=== PATIENT | male | born 2000 | race Hispanic/Latino ===

== ENCOUNTER 2022-12-16 06:01 | Emergency (ER) | payer SELFPAY ==
[2022-12-16 06:40] LABS: Absolute Lymphocytes (CBC) 1.8 K/uL (0.7-4.9); Hematocrit 49.4 % (39.6-49.0); Lymphocytes % 10.4 % (15.3-44.8); MCV 84.7 fL (80-100); MPV 9.1 fL (7.6-11.3); RBC Red Blood Cell Count 5.83 M/uL (4.33-5.43)
[2022-12-16 06:49] LABS: Specific Gravity 1.026 (1.005-1.030); Urine Bacteria <20 /HPF (<20); Urine Bilirubin NEGATIVE (Negative); Urine Blood 3+ (OVER) (Negative); Urine Clarity Extremely Turbid (Clear); Urine Color Light-Orange (Yellow); Urine Glucose NEGATIVE (Negative); Urine Mucus 4+ /HPF (None Seen); Urine Protein 1+ (Negative); Urine RBC >50 /HPF (None Seen); Urine Urobilinogen Normal (Normal); Urine pH 5.5 (5.0-7.0)
[2022-12-16] MEDS ORDERED: NA CHLORIDE 0.9% 1,000 ML ONE (06:54)
[2022-12-16] MEDS ORDERED: ONDANSETRON 4 MG/2 ML VIAL ONE (06:54)
[2022-12-16] MEDS ORDERED: MORPHINE 4 MG/ML SYR ONE (06:54)
[2022-12-16 06:58] LABS: Albumin 4.5 g/dL (3.4-5.0); Bilirubin Total 0.5 mg/dL (0.2-1.0); Potassium 3.4 mEq/L (3.5-5.1); Protein, Total 8.5 g/dL (6.4-8.2)
--- NOTE | 2022-12-16 07:32 | RAD REPORT ---
EXAM DESCRIPTION: CTAbdomen Pelvis W Contrast - 12/16/2022 7:20 am CLINICAL HISTORY: ABD PAIN COMPARISON: No comparisons TECHNIQUE: CT of the abdomen and pelvis was performed. All CT scans are performed using dose optimization technique as appropriate and may include automated exposure control or mA/KV adjustment according to patient size. FINDINGS: Lower chest: No acute abnormality. Mild circumferential thickened distal esophagus. Liver: No acute abnormality or suspicious lesions. Biliary: No biliary ductal dilatation. Stomach: No significant focal abnormality. Duodenum: No significant focal abnormality. Pancreas: No significant abnormality. Spleen: No significant abnormality. Adrenal: No suspicious lesions. Kidney/ureter: Mild right-sided hydronephrosis secondary to a 2 mm stone in the right proximal ureter . No renal calculi identified. Retroperitoneum: No retroperitoneal adenopathy. Vascular: No aneurysm. Bowel: No significant focal abnormality. Normal appendix . Peritoneum: No ascites or free air. Bladder: Grossly unremarkable. Reproductive: No adnexal masses. Bones: No acute fracture. Other: n/a IMPRESSION: Mild right-sided hydronephrosis secondary to a 2 mm stone in the right proximal ureter.
--- NOTE | 2022-12-16 08:13 | ER ---
Nurse's Notes [facility] Name: Shiraz Cantor Age: 22 yrs Sex: Male : 2000 Arrival Date: 12/16/2022 Time: 06:01 Bed 5 Private MD: Diagnosis: Kidney Stone/ Calculus in urethra Presentation: 12/16 06:11 Chief complaint: Patient states: Yesterday i started to notice some abdominal pain on kd3 the right lower side. I ate dinner and i vomited and felt better so i went to bed. This morning i wok up around 2 am with the same pain in my right lower side. Coronavirus screen: Vaccine status:. Ebola Screen: No symptoms or risks identified at this time. Initial Sepsis Screen: Does the patient meet any 2 criteria? No. Patient's initial sepsis screen is negative. Does the patient have a suspected source of infection? No. Patient's initial sepsis screen is negative. Risk Assessment: Do you want to hurt yourself or someone else? Patient reports no desire to harm self or others. Onset of symptoms was December 16, 2022. 06:11 Method Of Arrival: Ambulatory kd3 06:11 Acuity: EPIFANIO 3 kd3 Triage Assessment: 06:13 General: Appears uncomfortable, Behavior is calm, cooperative. Pain: Complains of pain kd3 in right lower quadrant. Neuro: Level of Consciousness is awake, alert, obeys commands, Oriented to person, place, time, situation. Cardiovascular: Patient's skin is warm and dry. Respiratory: Airway is patent Trachea midline Respiratory effort is even, unlabored, Respiratory pattern is regular, symmetrical. GI: Abdomen is non-distended, Reports lower abdominal pain, nausea, vomiting. Historical: - Allergies: 06:13 No Known Allergies; kd3 - Home Meds: 06:13 None [Active]; kd3 - PMHx: 06:13 None; kd3 - Immunization history:: Adult Immunizations. - Social history:: Smoking status: Patient reports the use of cigarette tobacco products. - Family history:: not pertinent. - Hospitalizations: : No recent hospitalization is reported. Screenin:15 [facility] ED Fall Risk Assessment (Adult) History of falling in the last 3 months, kd3 including since admission No falls in past 3 months (0 pts) Confusion or Disorientation No (0 pts) Intoxicated or Sedated No (0 pts) Impaired Gait No (0 pts) Mobility Assist Device Used No (0 pt) Altered Elimination No (0 pt) Score/Fall Risk Level 0 - 2 = Low Risk Maintained a safe environment. Abuse screen: Denies threats or abuse. Denies injuries from another. Nutritional screening: No deficits noted. Tuberculosis screening: No symptoms or risk factors identified. Assessment: 06:15 GI: Bowel sounds present X 4 quads. Abd is soft X 4 quads Abdomen is tender to kd3 palpation in right lower quadrant. 06:46 General: Appears uncomfortable, Behavior is calm, cooperative. Pain: Complains of pain kd3 in right lower quadrant. Neuro: Level of Consciousness is awake, alert, obeys commands, Oriented to person, place, time, situation. Cardiovascular: Patient's skin is warm and dry. Respiratory: Airway is patent Trachea midline Respiratory effort is even, unlabored, Respiratory pattern is regular, symmetrical. : Urine is cloudy, dark tea colored urine. 08:27 Reassessment: Patient appears in no apparent distress at this time. Patient and/or kr3 family updated on plan of care and expected duration. Pain level reassessed. Patient is alert, oriented x 3, equal unlabored respirations, skin warm/dry/pink. Vital Signs: 06:11 Pulse 110; Resp 19; Pulse Ox 96% on R/A; Weight 68.04 kg; Height 5 ft. 2 in. ; kd3 06:11 Temp 98(O); kd3 06:11 BP 165 / 94; kd3 06:54 BP 178 / 96; Pulse 107; Resp 19; Pulse Ox 96% on R/A; kd3 07:11 BP 190 / 114; Pulse 109; Resp 18; Pulse Ox 97% on 2 lpm NC; ld1 08:27 BP 159 / 97; Pulse 104; Resp 18; Pulse Ox 98% on 1 lpm NC; kr3 06:11 Body Mass Index 27.44 (68.04 kg, 157.48 cm) kd3 ED Course: 06:04 Patient arrived in ED. [id number] 06:07 Kirk Anderson MD is Attending Physician. rn 06:11 Aydee Augustine RN is Primary Nurse. kd3 06:13 Triage completed. kd3 06:13 Arm band placed on right wrist. kd3 06:15 Patient has correct armband on for positive identification. kd3 06:46 CMP Sent. kd3 06:46 Lipase Sent. kd3 06:46 Urinalysis w/ reflexes Sent. kd3 06:46 Lactate w/ 2H reflex if indic. Sent. kd3 06:46 Blood Culture Adult (2) Sent. kd3 07:06 Primary Nurse role handed off by Aydee Augustine RN eb 07:06 Attending Physician role handed off by Kirk Anderson MD bs3 07:06 Govind Porter MD is Attending Physician. bs3 07:22 CT Abd/Pelvis - IV Contrast Only In Process Unspecified. EDMS 07:36 Sheila Beth RN is Primary Nurse. kr3 08:12 Keyshawn Navarrete MD is Referral Physician. bs3 08:28 No provider procedures requiring assistance completed. IV discontinued, intact, kr3 bleeding controlled, No redness/swelling at site. Pressure dressing applied. Administered Medications: 06:45 Drug: NS 0.9% IV 1000 ml Route: IV; Rate: 1 bolus; Site: right antecubital; ha1 08:28 Follow up: IV Status: Completed infusion; IV Intake: 1000ml kr3 06:46 Drug: Ondansetron IVP 4 mg Route: IVP; Site: right antecubital; ha1 08:29 Follow up: Response: No adverse reaction kr3 06:49 Drug: morphine IVP or IV 4 mg Route: IVP; Infused Over: 4 mins; Site: right antecubital;ha1 08:29 Follow up: Response: No adverse reaction; RASS: Alert and Calm (0) kr3 Medication: 06:15 VIS not applicable for this client. kd3 Intake: 08:28 IV: 1000ml; Total: 1000ml. kr3 Outcome: 08:12 Discharge ordered by . bs3 08:28 Discharged to home ambulatory. kr3 08:28 Condition: stable 08:28 Discharge instructions given to patient, Instructed on discharge instructions, follow up and referral plans. medication usage, Demonstrated understanding of instructions, follow-up care, medications, Prescriptions given X 2. 08:28 Patient left the ED. kr3 Signatures: Dispatcher [employer] EDMS Kirk Anderson MD MD rn Botello, Elizabeth eb Sims, Lauren, RN RN ld1 Sangeetha Gloriaj6 Aydee Augustine, RN RN kd3 Tanya Rodriguez, RN RN ha1 Sheila Beth, RN RN kr3 Govind Porter MD MD bs3
--- NOTE | 2022-12-16 08:13 | EDPHYS ---
Physician Documentation [facility] Name: Shiraz Cantor Age: 22 yrs Sex: Male : 2000 Arrival Date: 12/16/2022 Time: 06:01 Bed 5 Private MD: ED Physician Govind Porter HPI: 12/16 06:22 This 22 yrs old Male presents to ER via Ambulatory with complaints of rn Abdominal Pain. 06:22 The patient presents with abdominal pain right lower quadrant. Onset: The rn symptoms/episode began/occurred yesterday. The symptoms do not radiate. Associated signs and symptoms: Pertinent positives: nausea and vomiting, Pertinent negatives: blood in stools, chest pain, constipation, diarrhea, fever, hematuria, shortness of breath, testicular pain. The symptoms are described as sharp, stabbing. Modifying factors: The symptoms are alleviated by nothing, the symptoms are aggravated by pressure. Severity of pain: At its worst the pain was moderate in the emergency department the pain is unchanged. The patient has not experienced similar symptoms in the past. The patient has not recently seen a physician. Historical: - Allergies: 06:13 No Known Allergies; kd3 - Home Meds: 06:13 None [Active]; kd3 - PMHx: 06:13 None; kd3 - Immunization history:: Adult Immunizations. - Social history:: Smoking status: Patient reports the use of cigarette tobacco products. - Family history:: not pertinent. - Hospitalizations: : No recent hospitalization is reported. ROS: 06:22 Constitutional: Negative for fever, chills, and weight loss, Cardiovascular: Negative rn for chest pain, palpitations, and edema, Respiratory: Negative for shortness of breath, cough, wheezing, and pleuritic chest pain, Abdomen/GI: + abd pain with nausea/vomiting Back: Negative for injury and pain, MS/Extremity: Negative for injury and deformity, Neuro: Negative for headache, weakness, numbness, tingling, and seizure. Exam: 06:22 Constitutional: This is a well developed, well nourished patient who is awake, alert, rn and in no acute distress. Cardiovascular: Tachycardic, regular. No pulse deficits. Respiratory: No increased work of breathing, no retractions or nasal flaring. Abdomen/GI: soft, + RLQ tenderness, no rebound Skin: Warm, dry MS/ Extremity: Pulses equal, no cyanosis. Neuro: Awake and alert, GCS 15 Vital Signs: 06:11 Pulse 110; Resp 19; Pulse Ox 96% on R/A; Weight 68.04 kg; Height 5 ft. 2 in. ; kd3 06:11 Temp 98(O); kd3 06:11 BP 165 / 94; kd3 06:54 BP 178 / 96; Pulse 107; Resp 19; Pulse Ox 96% on R/A; kd3 07:11 BP 190 / 114; Pulse 109; Resp 18; Pulse Ox 97% on 2 lpm NC; ld1 08:27 BP 159 / 97; Pulse 104; Resp 18; Pulse Ox 98% on 1 lpm NC; kr3 06:11 Body Mass Index 27.44 (68.04 kg, 157.48 cm) kd3 MDM: 06:07 Patient medically screened. rn 07:33 Data reviewed: vital signs, nurses notes. ED course: ct consistent with 2mm stone. pt bs3 very hypertensive, advised outpatietn f/u given htn, slightly low gfr for age. . 08:11 ED course: Patient strongly advised to follow-up regarding his elevated blood pressure bs3 return precautions for fevers chills intractable pain or any other concerning symptoms. 12/16 06:20 Order name: CBC with Diff; Complete Time: 07:06 rn 12/16 06:20 Order name: CMP; Complete Time: 07:06 rn 12/16 06:20 Order name: Lipase; Complete Time: 07:06 rn 12/16 06:20 Order name: Urinalysis w/ reflexes; Complete Time: 07:06 rn 12/16 07:07 Interpretation: Abnormal. bs3 12/16 06:20 Order name: Blood Culture Adult (2) rn 12/16 06:20 Order name: Lactate w/ 2H reflex if indic.; Complete Time: 07:06 rn 12/16 06:54 Order name: Urine Culture EDNC 12/16 07:07 Order name: CK; Complete Time: 07:33 bs3 12/16 06:20 Order name: CT Abd/Pelvis - IV Contrast Only; Complete Time: 07:33 rn 12/16 06:20 Order name: IV Saline Lock; Complete Time: 06:46 rn 12/16 06:20 Order name: Labs collected and sent; Complete Time: 06:46 rn Administered Medications: 06:45 Drug: NS 0.9% IV 1000 ml Route: IV; Rate: 1 bolus; Site: right antecubital; ha1 08:28 Follow up: IV Status: Completed infusion; IV Intake: 1000ml kr3 06:46 Drug: Ondansetron IVP 4 mg Route: IVP; Site: right antecubital; ha1 08:29 Follow up: Response: No adverse reaction kr3 06:49 Drug: morphine IVP or IV 4 mg Route: IVP; Infused Over: 4 mins; Site: right antecubital;ha1 08:29 Follow up: Response: No adverse reaction; RASS: Alert and Calm (0) kr3 Disposition Summary: 12/16/22 08:12 Discharge Ordered Location: Home bs3 Problem: new bs3 Symptoms: have improved bs3 Condition: Stable bs3 Diagnosis - Kidney Stone/ Calculus in urethra bs3 Followup: bs3 - With: Private Physician - When: 5 - 6 days - Reason: Re-evaluation by your physician Followup: bs3 - With: Keyshawn Navarrete MD - When: 48 Hours - Reason: If symptoms return Discharge Instructions: - Discharge Summary Sheet bs3 - Kidney Stones, [id number] bs3 - Hypertension, Adult, [id number] bs3 Forms: - Medication Reconciliation Form bs3 - Thank You Letter bs3 - Antibiotic Education bs3 - Prescription Opioid Use bs3 Prescriptions: - tamsulosin 0.4 mg Oral capsule - take 1 capsule by ORAL route every 24 hours; 14 capsule; Refills: 0, Product bs3 Selection Permitted - ondansetron 8 mg Oral tablet,disintegrating - take 1 tablet by ORAL route every 8 hours; 12 tablet; Refills: 0, Product bs3 Selection Permitted Signatures: Dispatcher [employer] Kirk Arriaga MD MD rn Aydee Augustine RN RN kd3 Tanya Rodriguez RN RN ha1 Govind Porter MD MD bs3 Sheila Beth RN kr3
[2022-12-16 08:34] VITALS: TEMP 98
[2022-12-16 08:37] VITALS: BP 159/97; O2SAT 98
== END 2022-12-16 08:28 | disposition home or self-care (01) ==
LOC: ER 06:01
DX: N20.0 Calculus of kidney (principal); N21.1 Calculus in urethra
CPT/HCPCS: 36415; 74177; 80053; 81001; 82550; 83605; 83690; 85025; 87040; 87086; 87088; 96361; 96374; 96375; 99284; J2405; J7030; Q9967